=== PATIENT | female | born 1945 | race American Indian/Alaskan Native ===

== ENCOUNTER 2016-09-06 17:03 | Emergency (ER) | payer MEDICARE ==
[2016-09-06 17:30] VITALS: BP 152/90; PULSE 77; RESP 17; TEMP 98.8; O2SAT 99
--- NOTE | 2016-09-06 17:57 | ED PDOC ---
Arrival/HPI - General Chief Complaint: Medical Clearance Time Seen by Provider: 09/06/16 17:35 Historian: Patient - History of Present Illness Narrative History of Present Illness (Text): 09/06/16 17:54 71yo female with PMHx of hypertension who present to ED for a refill of her BP medication. States she only have one of her antihypertensive left. she did not take it for two days because she was saving it. she plan to follow up with her PMD later. she denies headache, chest pain, SOB, diaphoresis, focal weakness, any other complaint. Past Medical History - Provider Review Nursing Documentation Reviewed: Yes - Cardiac Hx Hypertension: Yes - Psychiatric Hx Substance Use: No - Surgical History Other/Comment: throat Family/Social History - Physician Review Nursing Documentation Reviewed: Yes Family/Social History: Unknown Family HX Smoking Status: Never Smoked Hx Alcohol Use: No Hx Substance Use: No Allergies/Home Meds Allergies/Adverse Reactions: Allergies No Known Allergies Allergy (Verified 09/06/16 17:26) Home Medications: Home Meds Medication Instructions Recorded Confirmed amLODIPine [Norvasc] 09/06/16 Review of Systems - Physician Review All systems were reviewed & negative as marked: Yes - Review of Systems Constitutional: Normal, Other (BP medication refill) Eyes: Normal ENT: Normal Respiratory: Normal Cardiovascular: Normal Gastrointestinal: Normal Genitourinary Female: Normal Musculoskeletal: Normal Skin: Normal Neurological: Normal Endocrine: Normal Hemo/Lymphatic: Normal Psychiatric: Normal Physical Exam Vital Signs Reviewed: Yes Vital Signs Temp Pulse Resp BP Pulse Ox 09/06/16 17:27 98.8 F 77 17 152/90 H 99 Temperature: Afebrile Blood Pressure: Normal Pulse: Regular Respiratory Rate: Normal Appearance: Positive for: Well-Appearing, Non-Toxic, Comfortable Pain Distress: None Mental Status: Positive for: Alert and Oriented X 3 - Systems Exam Head: Present: Atraumatic, Normocephalic Pupils: Present: PERRL Extroacular Muscles: Present: EOMI Conjunctiva: Present: Normal Mouth: Present: Moist Mucous Membranes Neck: Present: Normal Range of Motion Respiratory/Chest: Present: Clear to Auscultation, Good Air Exchange. No: Respiratory Distress, Accessory Muscle Use Cardiovascular: Present: Regular Rate and Rhythm, Normal S1, S2. No: Murmurs Abdomen: Present: Normal Bowel Sounds. No: Tenderness, Distention, Peritoneal Signs Back: Present: Normal Inspection Upper Extremity: Present: Normal Inspection. No: Cyanosis, Edema Lower Extremity: Present: Normal Inspection. No: Edema Neurological: Present: GCS=15, CN II-XII Intact, Speech Normal Skin: Present: Warm, Dry, Normal Color. No: Rashes Psychiatric: Present: Alert, Oriented x 3, Normal Insight, Normal Concentration Disposition/Present on Arrival - Present on Arrival Any Indicators Present on Arrival: No History of DVT/PE: No History of Uncontrolled Diabetes: No Urinary Catheter: No History of Decub. Ulcer: No History Surgical Site Infection Following: None - Disposition Have Diagnosis and Disposition been Completed?: Yes Diagnosis: Hypertension, Medication refill Disposition: HOME/ ROUTINE Disposition Time: 17:55 Patient Plan: Discharge Condition: STABLE Discharge Instructions (ExitCare): Hypertension (ED) Additional Instructions: Take medication as directed Follow up with your doctor Return to ED for any new or worsening symptoms Prescriptions: amLODIPine [Norvasc] 5 mg PO DAILY #30 tab Referrals: Omi Del Rosario [Medical Doctor] - Follow up with primary
== END 2016-09-06 18:15 | disposition home or self-care (01) ==
LOC: MERGE 17:03 → ED 17:03
DX: I10 Essential (primary) hypertension (principal); Z76.0 Encounter for issue of repeat prescription